=== PATIENT | female | born 1955 | race Native Hawaiian/Other Pacific Islander ===

== ENCOUNTER 2018-06-21 08:46 | Day surgery (SDC) | payer OTHER | END 2018-06-21 10:17 | disposition home or self-care (01) | LOC: OR 08:46 | PROC: 3E0T3TZ Introduction of Destructive Agent into Peripheral Nerves and Plexi, Percutaneous Approach (ICD-10-PCS; principal; 2018-06-21) | PROC: BR16YZZ Fluoroscopy of Lumbar Facet Joint(s) using Other Contrast (ICD-10-PCS; 2018-06-21) | DX: M47.897 Other spondylosis, lumbosacral region (principal) | CPT/HCPCS: J2001 ==

== ENCOUNTER 2018-07-05 08:42 | Day surgery (SDC) | payer OTHER | END 2018-07-05 10:50 | disposition home or self-care (01) | LOC: OR 08:42 | PROC: 3E0T3TZ Introduction of Destructive Agent into Peripheral Nerves and Plexi, Percutaneous Approach (ICD-10-PCS; principal; 2018-07-05) | PROC: BR16YZZ Fluoroscopy of Lumbar Facet Joint(s) using Other Contrast (ICD-10-PCS; 2018-07-05) | DX: M47.817 Spondylosis without myelopathy or radiculopathy, lumbosacral region (principal) | CPT/HCPCS: J2001 ==

== ENCOUNTER 2019-02-13 08:58 | Day surgery (SDC) | payer OTHER | END 2019-02-13 11:15 | disposition home or self-care (01) | LOC: OR 08:58 | PROC: 3E0R33Z Introduction of Anti-inflammatory into Spinal Canal, Percutaneous Approach (ICD-10-PCS; principal; 2019-02-13) | PROC: B01BYZZ Fluoroscopy of Spinal Cord using Other Contrast (ICD-10-PCS; 2019-02-13) | DX: M51.16 Intervertebral disc disorders with radiculopathy, lumbar region (principal) | CPT/HCPCS: J1020 ==

== ENCOUNTER 2019-03-13 07:45 | Day surgery (SDC) | payer OTHER | END 2019-03-13 09:10 | disposition home or self-care (01) | LOC: OR 07:45 | PROC: 3E0R33Z Introduction of Anti-inflammatory into Spinal Canal, Percutaneous Approach (ICD-10-PCS; principal; 2019-03-13) | PROC: B01BYZZ Fluoroscopy of Spinal Cord using Other Contrast (ICD-10-PCS; 2019-03-13) | DX: M51.16 Intervertebral disc disorders with radiculopathy, lumbar region (principal) | CPT/HCPCS: J1020 ==